=== PATIENT | male | born 1960 | race Two or more races ===

== ENCOUNTER 2017-07-28 16:33 | Inpatient (IN) | payer BC ==
[~2017-07-28] VITALS: Ht 172.7 cm; Wt 72.6 kg
--- NOTE | 2017-07-28 16:50 | NUR ---
57 YO MALE BB RA FROM "[facility]". 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 PATIENT DENIES CP, SOB, NAUSEA. PATIENT ASSISTED TO ER BED15, PATIENT GOWNED, PLACED ON SUPERVISOR PREPRESS. AWAITING ORDERS FROM PROVIDER, WILL CONTINUE TO MONITOR
[2017-07-28 17:06] LABS: BASOPHILS # (AUTO) 0.1 /CMM (0.0-0.2); BASOPHILS % (AUTO) 1.2 % (0.0-2.0); EOSINOPHILS % (AUTO) 0.6 % (0.0-6.0); HEMATOCRIT 23 % (39-51); HEMOGLOBIN 7.9 g/dL (13.5-17.5); LYMPHOCYTES # (AUTO) 3.2 /CMM (0.8-4.8); LYMPHOCYTES % (AUTO) 33.1 % (20.0-44.0); MEAN CORPUSCULAR HGB CONC 35 g/dl (31.0-36.0); MEAN CORPUSCULAR VOLUME 90 fL (80-96); MONOCYTES # (AUTO) 0.6 /CMM (0.1-1.30); MONOCYTES % (AUTO) 5.7 % (2.0-12.0); NEUTROPHILS # (AUTO) 5.7 /CMM (1.8-8.9); NEUTROPHILS % (AUTO) 59.4 % (43.0-81.0); PLATELET COUNT (AUTO) 138 /CMM (150-450); RDW COEFFICIENT OF VARIATION 13.6 (11.5-15.0); RED BLOOD CELL COUNT(AUTO) 2.52 MIL/uL (4.5-6.0); WHITE BLOOD COUNT (AUTO) 9.7 K/uL (4.3-11.0)
[2017-07-28 17:18] LABS: CALCIUM, SERUM 7.4 mg/dL (8.5-10.1); CARBON DIOXIDE 23 mmol/L (21-32); CHLORIDE 107 mmol/L (98-107); CREATININE 0.8 mg/dL (0.6-1.3); GLUCOSE 119 mg/dL (74-106); POTASSIUM 3.6 mmol/L (3.5-5.1); SODIUM SERUM 138 mmol/L (136-145); UREA NITROGEN, BLOOD 24 mg/dL (7-18)
[2017-07-28 17:22] LABS: INR 1.13 (0.85-1.15)
[2017-07-28 17:26] LABS: TROPONIN I < 0.017 ng/mL (0.00-0.056)
--- NOTE | 2017-07-28 17:52 | NUR ---
PAGED EPIC FOR PANEL
[2017-07-28] MEDS ORDERED: IV NS 0.9% 1,000 ML IV PRN (18:21)
[2017-07-28] MEDS ORDERED: MAG HYDROX/AL HYDROX/SIMETH 30 ML UDC PO PRN ×2 (18:30→19:15)
[2017-07-28] MEDS ORDERED: MAGNESIUM HYDROXIDE 30 ML UDC PO PRN ×2 (18:30→19:15)
[2017-07-28] MEDS ORDERED: Z GUARD REMEDY 2 OZ OINT TP PRN ×2 (18:30→19:15)
[2017-07-28] MEDS ORDERED: ONDANSETRON HCL/PF 4 MG/2 ML VIAL IVP PRN ×2 (18:30→19:15)
[2017-07-28] MEDS ORDERED: ZOLPIDEM TARTRATE 5 MG TABLET PO PRN ×2 (18:30→19:15)
[2017-07-28] MEDS ORDERED: HYDROCODONE/APAP 5/325MG 1 EACH TABLET PO PRN ×2 (18:30→19:15)
[2017-07-28] MEDS ORDERED: ACETAMINOPHEN 325 MG TABLET PO PRN ×2 (18:30→19:15)
[2017-07-28] MEDS ORDERED: PANTOPRAZOLE 40 MG VIAL IV SCH ×2 (18:30→19:15)
[2017-07-28] MEDS ORDERED: IOHEXOL-300 100 ML VIAL IV ONE (18:58)
[2017-07-28] MEDS ORDERED: IV NS 0.9% 250 ML IV ONE (18:58)
[2017-07-28] MEDS ORDERED: TAMS0.4C34 PO (19:06)
[2017-07-28] MEDS ORDERED: CHOL200026 PO (19:06)
[2017-07-28] MEDS ORDERED: LOSA50TA21 PO (19:06)
--- NOTE | 2017-07-28 19:14 | NUR ---
report was given to telecommunications operator for elio
--- NOTE | 2017-07-28 19:30 | NUR ---
TELE/RN OPENING NOTES RECEIVED PATIENT FROM ER ON A GURNEY BY 2 ER STAFF, ACCOMPANIED BY FAMILY MEMBERS, PATIENT, ALERT, ORIENTED X3, ABLE TO AMBULATE BUT WEAK REQUIRE ASSISTANCE FOR SAFETY, ABLE TO VERBALIZE NEEDS, REPORTED PAIN TOLERABLE BUT SOME DISCOMFORT FELT IN LOWER BACK WHEN AMBULATING, ON TELE, AT SR 105, SKIN INTACT, NO ORDER FOR DIET PER MD, WILL FOLLOW UP MEDICATION ORDER BY MD, HOME MEDS REPORTED, ROOM ORIENTATION PROVIDED, BELONGINGS CHECK, CELL PHONE AND GREEN HIDE INSPECTOR WITH SOME CLOTHES AND FOOT WEAR. CALL LIGHTS WITHIN REACH, DISCUSSED PLAN OF CARE, SAFETY MEASURES PROVIDED BY INSTRUCTING TO CALL FOR ASSISTANCE, USES URINAL, AND WILL MONITOR. BED IN LOCK POSITION, IV NS ORDERED AR 75ML /HR FOR HYDRATION, IV SITE ON LEFT WRIST, PATENT CHECK.
--- NOTE | 2017-07-28 19:31 | NUR ---
TELE/RN NOTES PATIENT ADMITTED FOR GIB GI BLEED, REPORTED HAD BLACK LARGE STOOL TODAY. HGB LEVEL LATEST RESULT AT 7.9l, HCT 23l PLT AT 138l, LABS IN AM
[2017-07-28] MEDS: IV NS 0.9% 1,000 ML IV PRN (19:43)
[2017-07-28 20:00] VITALS: BP 129/84
[2017-07-28 20:19] VITALS: BP 129/84
[2017-07-28 20:42] VITALS: BP 129/84
[2017-07-28 23:42] VITALS: BP 129/84
[2017-07-28 23:44] VITALS: BP 99/87
[2017-07-29] VITALS (8 sets, daily range): BP systolic 93–135; BP diastolic 59–85
--- NOTE | 2017-07-29 02:14 | NUR ---
tele/rn notes paulina stephens was contacted to clarify diet order for patient eho has dx of gi blee, to keep patient npo at this time,
[2017-07-29] MEDS: IV NS 0.9% 1,000 ML IV PRN ×3 (04:49→20:35)
--- NOTE | 2017-07-29 06:16 | NUR ---
323-1 TELE/RN NOTES PATIENT ON CARDIAC MONITORING , RESTING COMFORTABLY IN BED, ALERT, ORIENTEDX3, RESPIRATIONS EVEN AND UNLABORED, ABLE TO VERBALIZE NEEDS, CALL LIGHTS WITHIN REACH, WILL ENDORSE TO AM RN FOR CHRISTIANO.
--- NOTE | 2017-07-29 07:37 | NUR ---
SALES AMBASSADOR OPENING NOTES RECEIVED PT FROM NIGHTSHIFT NURSE IN STABLE CONDITION. PT IS A/O X4. NO SOB OR SIGNS OF DISTRESS NOTED. BREATHING IS EVEN AND UNLABORED. HE DENIES ANY ABDOMINAL PAIN AT THIS TIME. PT IS SINUS RHYTHM ON THE TELE MONITOR WITH A HR OF 61. IV TO LEFT WRIST NOTED TO BE PATENT AND INTACT. PT TOLERATING IV NS INFUSION WELL. NO REDNESS OR SIGNS OF INFILTRATION NOTED. BED IN LOW LOCKED POSITION, SIDE RAILS UP X2, CALL LIGHT WITHIN REACH. WILL CONTINUE TO MONITOR
[2017-07-29 07:41] LABS: BASOPHILS % (AUTO) 0.2 % (0.0-2.0); EOSINOPHILS % (AUTO) 1.1 % (0.0-6.0); HEMATOCRIT 23 % (39-51); HEMOGLOBIN 7.7 g/dL (13.5-17.5); LYMPHOCYTES # (AUTO) 2.8 /CMM (0.8-4.8); LYMPHOCYTES % (AUTO) 37.5 % (20.0-44.0); MEAN CORPUSCULAR HGB CONC 34 g/dl (31.0-36.0); MEAN CORPUSCULAR VOLUME 91 fL (80-96); MONOCYTES # (AUTO) 0.6 /CMM (0.1-1.30); MONOCYTES % (AUTO) 7.4 % (2.0-12.0); NEUTROPHILS % (AUTO) 53.8 % (43.0-81.0); PLATELET COUNT (AUTO) 140 /CMM (150-450); RDW COEFFICIENT OF VARIATION 14.1 (11.5-15.0); RED BLOOD CELL COUNT(AUTO) 2.47 MIL/uL (4.5-6.0); WHITE BLOOD COUNT (AUTO) 7.5 K/uL (4.3-11.0)
[2017-07-29 07:49] LABS: ALBUMIN 2.9 g/dL (3.4-5.0); CALCIUM, SERUM 7.1 mg/dL (8.5-10.1); CREATININE 0.8 mg/dL (0.6-1.3); TOTAL PROTEIN, SERUM 5.5 g/dL (6.4-8.2)
[2017-07-29 09:35] LABS: IRON, SERUM 88 ug/dl (50-175); TOTAL IRON BINDING CAPACITY 347 ug/dl (250-450)
[2017-07-29 09:38] LABS: TROPONIN I < 0.017 ng/mL (0.00-0.056)
[2017-07-29 09:48] LABS: CHOLESTEROL 113 mg/dL (<200); FERRITIN 67 ng/mL (8-388); HDL CHOLESTEROL 38 mg/dL (40-60); LDL 59 mg/dL (0-99); THYROID STIMULATING HORMONE 2.952 uIU/mL (0.358-3.74); TRIGLYCERIDES 125 mg/dL (30-150)
[2017-07-29 11:14] LABS: OCCULT BLOOD STOOL POSITIVE (NEGATIVE)
[2017-07-29 12:03] LABS: BILIRUBIN,DIRECT 0.1 mg/dL (0.0-0.2); BILIRUBIN,TOTAL 0.4 mg/dL (0.2-1.0)
[2017-07-29 13:25] LABS: BILIRUBIN,TOTAL 0.4 mg/dL (0.2-1.0)
[2017-07-29] MEDS: PANTOPRAZOLE 40 MG VIAL IV SCH (16:36)
--- NOTE | 2017-07-29 17:48 | NUR ---
MS RN NOTES PT WAS SEEN BY DR CARRIE [facility] [employer]URN[facility]ER. PER LILLIANA "PT MAY HAVE A FULL LIQUID LATE LUNCH TRAY AND ANOTHER FOR DINNER. HE WILL BE NPO POST MIDNIGHT". ORDERS IMPUTED AND CARRIED OUT
--- NOTE | 2017-07-29 18:17 | NUR ---
MS RN CLOSING NOTES PT REMAINS STABLE. ABLE TO TOLERATE FULL LIQUID DIET WELL. NO COMPLAINTS OF PAIN AT THIS TIME. PT WILL BE NPO POST MIDNIGHT FOR SCHEDULED EGD PROCEDURE TOMORROW MORNING. CONSENTS SIGNED BY PT. PT HAD ONE EPISODE OF BLACK TARRY INES IN THE AM. MADE AWARE AND OF THE POSITIVE OB STOOL RESULTS. VITALS STABLE THROUGHOUT SHIFT. WILL ENDORSE TO NIGHTSHIFT NURSE FOR CHRISTIANO
--- NOTE | 2017-07-29 19:25 | NUR ---
MS RN OPENING NOTES: PATIENT SITTING UP ON BED, AOX4, ON ROOM AIR, BREATHING EVEN AND UNLABORED. BREATH SOUDNS CLEAR TO AUSCULTATION. APPEARS CALM AND IN NO DISTRESS, EATING DINNER WITH AT BEDSIDE. DENIES PAIN OR DIZZINESS AT THIS TIME. DOES NOT APPEAR PALE, CAP REFILL LESS THAN 3 SEC. PIV OVER L WRIST G 20 INTACT AND INFUSING WELL WITH NS RUNNING AT 125 ML/HR. PROVIDED FOR COMFORT AND SAFETY. BED IN LOWEST AND LOCKED POSITION, SIDERAILS UP X2, CALL LIGHT WITHIN REACH. WILL CONT TO MONITOR.
[2017-07-30] VITALS (14 sets, daily range): BP systolic 105–137; BP diastolic 67–85
[2017-07-30] MEDS: IV NS 0.9% 1,000 ML IV PRN ×3 (04:07→23:28)
--- NOTE | 2017-07-30 06:40 | NUR ---
MS RN CLOSING NOTES: PATIENT IN BED, AOX4, ON ROOM AIR, BREATHING EVEN AND UNLABORED. APPEARS CALM AND IN NO DISTRESS. DENIES PAIN. PIV OVER LFA G 20 INTACT AND PATENTLY INFUSING WITH NS AT 125 ML/HR. DUE MEDS GIVEN. PROVIDED FOR COMFORT AND SAFETY. MAINTAINED ON NPO FOR EGD AT 12 NOON. NO ACUTE CHANGE IN CONDITION NOTED THROUGH SHIFT. WILL ENDORSE TO AM RN FOR CHRISTIANO.
[2017-07-30 06:41] LABS: BASOPHILS % (AUTO) 0.2 % (0.0-2.0); EOSINOPHILS % (AUTO) 2.3 % (0.0-6.0); HEMATOCRIT 21 % (39-51); LYMPHOCYTES # (AUTO) 3.3 /CMM (0.8-4.8); LYMPHOCYTES % (AUTO) 52.3 % (20.0-44.0); MEAN CORPUSCULAR HGB CONC 34 g/dl (31.0-36.0); MEAN CORPUSCULAR VOLUME 92 fL (80-96); MONOCYTES # (AUTO) 0.5 /CMM (0.1-1.30); MONOCYTES % (AUTO) 7.4 % (2.0-12.0); NEUTROPHILS # (AUTO) 2.4 /CMM (1.8-8.9); NEUTROPHILS % (AUTO) 37.8 % (43.0-81.0); PLATELET COUNT (AUTO) 142 /CMM (150-450); RDW COEFFICIENT OF VARIATION 14.3 (11.5-15.0); RED BLOOD CELL COUNT(AUTO) 2.22 MIL/uL (4.5-6.0); WHITE BLOOD COUNT (AUTO) 6.4 K/uL (4.3-11.0)
--- NOTE | 2017-07-30 07:07 | NUR ---
RN NOTES: LAB CALLED FOR HGB: 7.0. ENDORSED TO AM KATHLEEN SHORT.
[2017-07-30 07:18] LABS: ALBUMIN 2.5 g/dL (3.4-5.0); BILIRUBIN,TOTAL 0.3 mg/dL (0.2-1.0); CALCIUM, SERUM 7.6 mg/dL (8.5-10.1); CREATININE 0.8 mg/dL (0.6-1.3); MAGNESIUM 1.9 mg/dL (1.8-2.4); PHOSPHORUS 3.4 mg/dL (2.5-4.9); POTASSIUM 4.2 mmol/L (3.5-5.1); TOTAL PROTEIN, SERUM 5.2 g/dL (6.4-8.2)
--- NOTE | 2017-07-30 08:00 | NUR ---
MS RN NOTES INFORMED DR. BOWIE OF H/H: 7.0 STATES WILL EVALUATE PATIENT AND PLACE ORDERS.
--- NOTE | 2017-07-30 08:00 | NUR ---
MS RN NOTES Patient found resting comfortably in bed with no SOB or acute distress. Patient's call light within reach, bed in low/locked position, 2 side rails up. Patient A&Ox4. Peripheral IV 20g in left wrist patent with NS at 125/hr. Will continue to monitor.
[2017-07-30] MEDS: PANTOPRAZOLE 40 MG VIAL IV SCH ×2 (08:52→16:52)
--- NOTE | 2017-07-30 15:30 | NUR ---
MS RN NOTES Patient transferred to OR in stable condition. Patient is still transfusing one unit of PRBCs. OR nurse to continue transfusion and monitoring.
--- NOTE | 2017-07-30 16:30 | NUR ---
MS RN NOTES Patient returned from EGD procedure. Patient is stable with vitals signs WNL, and patient is resting comfortably, A&Ox4. Patient denies any pain or discomfort. Patient will start on full liquids. PRBC transfusion completed upon return to unit at 1630.
--- NOTE | 2017-07-30 18:49 | NUR ---
MS RN NOTES PATIENT IN BED RESTING NO SOB OR ACUTE DISTRESS NOTED. PATIENT ALERT, ORIENTED X4. WITH FAMILY AT BEDSIDE. ALL DUE MEDICATIONS ADMINISTERED. ALL NEEDS MET. WILL ENDORSE TO PM SHIFT CHRISTIANO.
--- NOTE | 2017-07-30 19:25 | NUR ---
MS RN OPENING NOTES RECEIVED PT LAYING IN BED WITH HOB ELEVATED. AWAKE AND RESPONSIVE. RESPIRATIONS ARE EVEN AND UNLABORED, NOT IN ANY ACUTE DISTRESS NOTED. DENIES ANY PAIN AT THIS TIME. NO SOB NOTED. IV SITE INTACT, NO INFILTRATION NOTED. SAFETY MEASURES ARE IN PLACE. BED IS IN ITS LOW AND LOCKED POSITION. INSTRUCTED PT TO USE CALL LIGHT WHEN ASSISTANCE IS NEEDED, CALL LIGHT IS LEFT WITHIN REACH. WILL CONTINUE TO MONITOR THROUGHOUT SHIFT.
--- NOTE | 2017-07-31 06:30 | NUR ---
MS RN CLOSING NOTES ALL DUE MEDS GIVEN, NEEDS MET AND RENDERED. AWAKE AND RESPONSIVE. RESPIRATIONS ARE EVEN AND UNLABORED, NOT IN ANY ACUTE DISTRESS NOTED. DENIES ANY PAIN AT THIS TIME, NO SOB, N/V. IV SITE INTACT, NO INFILTRATION NOTED. DRESSING KEPT CLEAN AND DRY. SAFETY MEASURES ARE IN PLACE. BED IS IN ITS LOWEST AND LOCKED POSITION. REMINDED PT TO USE CALL LIGHT WHEN ASSISTANCE IS NEEDED, CALL LIGHT IS LEFT WITHIN REACH. WILL ENDORSE TO NEXT SHIFT FOR CONTINUITY OF CARE.
[2017-07-31 06:37] LABS: ALBUMIN 2.8 g/dL (3.4-5.0); BILIRUBIN,TOTAL 0.5 mg/dL (0.2-1.0); CALCIUM, SERUM 7.9 mg/dL (8.5-10.1); CREATININE 0.9 mg/dL (0.6-1.3); MAGNESIUM 2.8 mg/dL (1.8-2.4); PHOSPHORUS 3.4 mg/dL (2.5-4.9); TOTAL PROTEIN, SERUM 5.6 g/dL (6.4-8.2)
[2017-07-31 06:47] LABS: BASOPHILS % (AUTO) 0.3 % (0.0-2.0); EOSINOPHILS % (AUTO) 2.9 % (0.0-6.0); HEMATOCRIT 25 % (39-51); HEMOGLOBIN 8.4 g/dL (13.5-17.5); LYMPHOCYTES # (AUTO) 3.5 /CMM (0.8-4.8); MEAN CORPUSCULAR HGB CONC 34 g/dl (31.0-36.0); MEAN CORPUSCULAR VOLUME 92 fL (80-96); MONOCYTES # (AUTO) 0.6 /CMM (0.1-1.30); MONOCYTES % (AUTO) 7.2 % (2.0-12.0); NEUTROPHILS % (AUTO) 47.6 % (43.0-81.0); PLATELET COUNT (AUTO) 164 /CMM (150-450); RDW COEFFICIENT OF VARIATION 14.6 (11.5-15.0); RED BLOOD CELL COUNT(AUTO) 2.69 MIL/uL (4.5-6.0); WHITE BLOOD COUNT (AUTO) 8.3 K/uL (4.3-11.0)
--- NOTE | 2017-07-31 07:59 | NUR ---
MS RN: INITIAL NOTE RECEIVED PT A/OX4. NO DISTRESS NOTED. NO SOB NOTED. NO PAIN NOTED. ON ROOM AIR. SATING AT 96%. MS. CONTINENT. BRP WITH OUT ASSIST. FULL LIQUID DIET. L FA #20G RUNNING NS AT 125ML/HR. NO REDNESS OR BLEEDING NOTED. RESTING COMFORTABLY IN BED. CALL LIGHT WITHIN REACH.
[2017-07-31 08:00] VITALS: BP 113/74
[2017-07-31] MEDS: PANTOPRAZOLE 40 MG VIAL IV SCH ×2 (08:48→17:15)
[2017-07-31] MEDS: IV NS 0.9% 1,000 ML IV PRN ×2 (08:56→17:15)
--- NOTE | 2017-07-31 10:19 | NUR ---
PER MD FOOTE TO PLACE ORDER FOR MECLIZINE 25MG PO Q 8HOURS. ORDERS CARRIED OUT.
[2017-07-31] MEDS ORDERED: MECLIZINE HCL 12.5 MG TABLET PO PRN (10:30)
[2017-07-31] MEDS: MECLIZINE HCL 12.5 MG TABLET PO SCH ×2 (13:41→21:30)
[2017-07-31 16:00] VITALS: BP 141/85
[2017-07-31] MEDS ORDERED: NA PHOS,M-B/NA PHOS,DI-BA 1 EA ENEMA RC PRN (17:30)
[2017-07-31] MEDS ORDERED: PEG 3350/NA SULF,BICARB,CL/KCL 4,000 ML BOTTLE PO ONE (17:30)
[2017-07-31] MEDS ORDERED: MAGNESIUM CITRATE 296 ML BOTTLE PO ONE (17:30)
--- NOTE | 2017-07-31 18:47 | NUR ---
MS RN: CLOSING NOTE PT TOOK ALL MEDICATIONS ON TIME. NO ADVERSE REACTIONS NOTED. NO SOB NOTED. NO PAIN NOTED. NO DISTRESS NOTED. CONTINENT. BRP. AMBULATORY. SKIN INTACT. ON FULL LIQUID DIET. L FA #20G RUNNING NS AT 125ML/HR. SITE CLEAR AND PATENT. SCHEDULED FOR COLONOSCOPY ON Wednesday08/02/17. CONSENT SIGNED AND PLACED IN CHART. NPO MIDNIGHT AT 08/01/17. RESTING COMFORTABLY IN BED. CALL LIGHT WITHIN REACH.
--- NOTE | 2017-07-31 19:38 | NUR ---
MS RN OPENING NOTES RECEIVED PT SITTING UPRIGHT IN BED. AWAKE AND RESPONSIVE. RESPIRATIONS ARE EVEN AND UNLABORED, NOT IN ANY ACUTE DISTRESS NOTED. DENIES ANY PAIN AT THIS TIME. IV SITE INTACT, NO INFILTRATION NOTED. SAFETY MEASURES ARE IN PLACE. BED IS IN ITS LOW AND LOCKED POSITION. WILL CONTINUE TO MONITOR THROUGHOUT SHIFT.
[2017-07-31 20:00] VITALS: BP 147/73
[2017-08-01] MEDS: IV NS 0.9% 1,000 ML IV PRN (02:13)
--- NOTE | 2017-08-01 06:13 | NUR ---
MS RN CLOSING NOTES ALL DUE MEDS GIVEN, NEEDS MET AND RENDERED. AWAKE AND RESPONSIVE. RESPIRATIONS ARE EVEN AND UNLABORED AT THIS TIME. DENIES ANY PAIN, NO CHEST PAIN, NO N/V OR SOB. IV SITE INTACT, NO INFILTRATION NOTED. DRESSING KEPT CLEAN AND DRY. SAFETY MEASURES ARE IN PLACE. BED IS IN ITS LOW AND LOCKED POSITION. REMINDED PT TO USE CALL LIGHT WHEN ASSISTANCE IS NEEDED, CALL LIGHT IS LEFT WITHIN REACH. WILL ENDORSE TO NEXT SHIFT FOR CONTINUITY OF CARE.
[2017-08-01] MEDS: MECLIZINE HCL 12.5 MG TABLET PO SCH ×3 (06:25→21:05)
--- NOTE | 2017-08-01 08:00 | NUR ---
RN NOTES RECEIVED PATIENT IN THE BED AO X4, ENCOURAGED TO EXPRESS FEELINGS AND CONCERNS, PATIENT HAS NO ACUTE RESPIRATORY DISTRESS, V/S STABLE, INFUSING NS AT 125 ML/HR INTACT ON LEFT FA, PATIENT HAS NO C/O PAIN AT THIS TIME, SCHEDULED MEDICATION ADMINISTERED. PATIENT AMBULATORY SELF CARE, CALL LIGHT WITHIN TO REACH, CONTINUED MONITORING.
[2017-08-01] MEDS: PANTOPRAZOLE 40 MG VIAL IV SCH ×2 (08:38→17:23)
[2017-08-01 08:57] LABS: BASOPHILS % (AUTO) 0.3 % (0.0-2.0); EOSINOPHILS % (AUTO) 4.3 % (0.0-6.0); HEMATOCRIT 27 % (39-51); HEMOGLOBIN 9.2 g/dL (13.5-17.5); LYMPHOCYTES # (AUTO) 2.6 /CMM (0.8-4.8); LYMPHOCYTES % (AUTO) 37.9 % (20.0-44.0); MEAN CORPUSCULAR HGB CONC 34 g/dl (31.0-36.0); MEAN CORPUSCULAR VOLUME 93 fL (80-96); MONOCYTES # (AUTO) 0.5 /CMM (0.1-1.30); MONOCYTES % (AUTO) 7.3 % (2.0-12.0); NEUTROPHILS # (AUTO) 3.5 /CMM (1.8-8.9); NEUTROPHILS % (AUTO) 50.2 % (43.0-81.0); PLATELET COUNT (AUTO) 202 /CMM (150-450); RDW COEFFICIENT OF VARIATION 15.2 (11.5-15.0); RED BLOOD CELL COUNT(AUTO) 2.94 MIL/uL (4.5-6.0)
[2017-08-01 10:00] VITALS: BP 117/75
[2017-08-01] MEDS ORDERED: PEG 3350/NA SULF,BICARB,CL/KCL 4,000 ML BOTTLE PO ONE (10:00)
[2017-08-01 10:05] VITALS: BP 123/81
[2017-08-01 10:10] VITALS: BP 128/72
[2017-08-01] MEDS ORDERED: MAGNESIUM CITRATE 296 ML BOTTLE PO ONE (11:00)
--- NOTE | 2017-08-01 11:00 | NUR ---
RN NOTES PATIENT IN THE BED, STARTED GOLYTELY MEDICATION INTAKE PREPARATION OF COLONOSCOPY TOMORROW. PATIENT HAS NO ACUTE DISTRESS, AMBULATORY, SELF CARE, CALL LIGHT WITHIN TO REACH. NEXT TO THE BED. CONTINUED MONITORING.
--- NOTE | 2017-08-01 18:30 | NUR ---
RN NOTES PATIENT IN THE BED, STILL DRINKING GOLYTELY. PATIENT HAS NO S/S OF NAUSEA, AND VOMITING, REFUSED PAIN AT THIS TIME. CALL LIGHT WITHIN TO REACH. CONTINUED MONITORING. ENDORSED ONCOMING NURSE FOR CHRISTIANO.
--- NOTE | 2017-08-01 19:50 | NUR ---
OPENING NOTES: RECEIVED PATIENT AWAKE THE BED A/O X 4, CALM, COOPERATIVE, NO SOB, NO ACUTE DISTRESS, BREATHING EVEN AND UNLABORED. DENIES PAIN AND DISCOMFORT. ON CLEAR LIQUID DIET AND TOLERATED WELL. IV LINE ON LFA AREA INTACT AND PATENT, NO S/S OF IV INFILTRATION. KEPT CLEAN, DRY AND COMFORTABLE. CALL LIGHT WITHIN TO REACH, WILL CONTINUE TO MONITOR.
[2017-08-02] VITALS (11 sets, daily range): BP systolic 110–133; BP diastolic 60–89
[2017-08-02] MEDS: MECLIZINE HCL 12.5 MG TABLET PO SCH ×2 (05:20→14:34)
[2017-08-02 07:44] LABS: INR 1.1 (0.87-1.13)
--- NOTE | 2017-08-02 07:56 | NUR ---
NO SIGNIFICANT CHANGE NOTED, PATIENT STABLE. ENDORSED TO THE NEXT SHIFT.
[2017-08-02] MEDS ORDERED: SUCCINYLCHOLINE CHLORIDE 20 MG/ML VIAL ONE (08:08)
[2017-08-02] MEDS: PANTOPRAZOLE 40 MG VIAL IV SCH (09:26)
--- NOTE | 2017-08-02 09:30 | NUR ---
MS RN NOTES Patient left for colonoscopy at 0730 and returned to our unit in stable condition at 0900. Patient's vital signs upon arrival were 117/78, 57 bpm, resp 18, 98% O2 sat, and temp 97.8 F. Patient in no pain or acute distress; resting comfortably in bed. Patient will start on full liquid diet and advance as tolerated. Will continue to monitor.
--- NOTE | 2017-08-02 09:59 | NUR ---
MS RN OPENING NOTES Patient found resting comfortably in bed with no signs or symptoms of acute distress. He is AA&Ox4, on room air, breathing is non-labored, patient is without pain. Patient has remained NPO and is due for colonoscopy this AM. Bed is in low/locked position and call gauthier is within reach. Will continue to monitor.
--- NOTE | 2017-08-02 15:30 | NUR ---
MS RN NOTES PATIENT DISCHARGED HOME WITH . PATIENT ALERT, ORIENTED X4 DENIES ANY PAIN OR DISCOMFORT. MD AWARE OF ALL ABNORMAL LABS. DISCHARGE TEACHING PROVIDED VERBALIZED UNDERSTANDING BOTH PATIENT AND PATIENTS . DISCHARGE PROTOCOL FOLLOWED. EDUCATION PROVIDED ON DISCHARGE PRESCRIPTION. INSTRUCTED TO FOLLOW UP WITH DR. RICHARDS FOR CAPSULE ENDOSCOPY AND PCP. PRESCRIPTION GIVEN TO PATIENT. ALL BELONGINGS ACCOUNTED FOR. BELONGING LIST SIGNED. PERIPHERAL IV REMOVED WITH MINIMAL BLEEDING. ID BAND REMOVED. PATIENT ESCORTED TO CAR BY LABORER STORES.
== END 2017-08-02 15:30 | disposition home or self-care (01) | DRG 394 ==
LOC: ER 16:35 → TELE 19:16 → MED 07-29 12:12
PROVIDERS: ADMIT Internal Medicine; ATTEND Internal Medicine
PROC: 30233N1 Transfusion of Nonautologous Red Blood Cells into Peripheral Vein, Percutaneous Approach (ICD-10-PCS; principal; 2017-07-30 12:00)
PROC: 0DB68ZX Excision of Stomach, Via Natural or Artificial Opening Endoscopic, Diagnostic (ICD-10-PCS; principal; 2017-07-30 12:00)
PROC: 0DJD8ZZ Inspection of Lower Intestinal Tract, Via Natural or Artificial Opening Endoscopic (ICD-10-PCS; 2017-08-02)
DX: K64.8 Other hemorrhoids (principal); D62 Acute posthemorrhagic anemia; N17.9 Acute kidney failure, unspecified; I95.9 Hypotension, unspecified; E44.1 Mild protein-calorie malnutrition; E86.0 Dehydration; K29.70 Gastritis, unspecified, without bleeding; E53.9 Vitamin B deficiency, unspecified; I10 Essential (primary) hypertension; I95.1 Orthostatic hypotension; Z79.899 Other long term (current) drug therapy; N40.0 Benign prostatic hyperplasia without lower urinary tract symptoms; K57.90 Diverticulosis of intestine, part unspecified, without perforation or abscess without bleeding; K29.60 Other gastritis without bleeding; Z87.11 Personal history of peptic ulcer disease; Z79.1 Long term (current) use of non-steroidal anti-inflammatories (NSAID)
CPT/HCPCS: 36415; 70450-TC; 71045-TC; 72125-TC; 80048-TC; 80053-TC; 80061-TC; 82247-TC; 82248-TC; 82272-TC; 82306; 82728-TC; 82962-TC; 83540-TC; 83735-TC; 84100-TC; 84439-TC; 84443-TC; 84484-TC; 85025-TC; 85610-TC; 85652-TC; 85730-TC; 86850-TC; 86921-TC; 87081-TC; 88305-TC; 88313-TC; 88342; 93307-TC; A4606; C9113; J0330; J2704; J3490; J7030; J7050; J8597; P9016-BL; Q9967; Z7610

== ENCOUNTER 2017-08-09 13:36 | Outpatient (CLI) | payer BC ==
[~2017-08-09 13:36] MED LIST: CHOL200026 PO; LOSA50TA21 PO; TAMS0.4C34 PO
[2017-08-09 13:39] VITALS: BP 142/80
== END 2017-08-09 23:59 | disposition home or self-care (01) ==
LOC: MSC 13:36
PROVIDERS: ATTEND Internal Medicine
DX: K64.8 Other hemorrhoids (principal); K57.90 Diverticulosis of intestine, part unspecified, without perforation or abscess without bleeding; I10 Essential (primary) hypertension; N40.0 Benign prostatic hyperplasia without lower urinary tract symptoms